=== PATIENT | female | born 1990 | race African-American/Black ===

== ENCOUNTER 2020-11-21 03:00 | Inpatient (IN) | payer OTHER ==
[2020-11-21] MEDS: DEXTROSE 5%-LACTATED RINGERS 1,000 ML IV SCH (03:00)
[2020-11-21] MEDS: OXYTOCIN 20 UNITS in 0.9% NS 20 UNIT/1,000 ML INFUS.BAG IV SCH (03:30)
[2020-11-21] MEDS ORDERED: WITCH HAZEL 50% (TUCKS) 40 PAD/JAR PAD TP PRN (05:26)
[2020-11-21] MEDS ORDERED: BISACODYL 10 MG SUPP.RECT RC PRN (05:26)
[2020-11-21] MEDS ORDERED: BENZOCAINE 28 GM HEMORRHOIDAL OINTMENT TP PRN (05:26)
[2020-11-21] MEDS ORDERED: METHYLERGONOVINE MALEATE 0.2 MG/1 ML AMP IM PRN (05:26)
[2020-11-21] MEDS ORDERED: BENZOCAINE 20% 57 GM BOTTLE TP PRN (05:26)
[2020-11-21] MEDS ORDERED: ACETAMINOPHEN 325 MG TABLET (FP) PO PRN (05:26)
[2020-11-21] MEDS ORDERED: IBUPROFEN 600 MG TABLET (FP) PO PRN (05:26)
[2020-11-21 06:26] LABS: BASO % 0.2 % (0-2.0); HEMATOCRIT 35.1 % (32.4-45.2); HEMOGLOBIN 11.7 GM/dL (10.7-15.3); LYMPH % 7.1 % (8-40); MCH 27.8 pg (25.7-33.7); MCHC 33.2 g/dl (32.0-36.0); MEAN CELL VOLUME 83.6 fl (80-96); MEAN PLT VOLUME 10.3 fl (7.5-11.1); MONO % 6.3 % (3.8-10.2); NEUT % 86.4 % (42.8-82.8); PLATELET COUNT 219 K/MM3 (134-434); RDW 15.2 % (11.6-15.6)
[2020-11-21 06:36] LABS: INR 0.97 (0.83-1.09); PROTHROMBIN TIME (PATIENT) 11.7 SEC (9.7-13.0)
[2020-11-21 06:50] LABS: POTASSIUM 4.5 mmol/L (3.5-5.1)
[2020-11-21 06:51] LABS: CALCIUM 8.8 mg/dL (8.5-10.1)
[2020-11-21 06:52] LABS: BLOOD UREA NITROGEN 5.3 mg/dL (7-18)
[2020-11-21 06:54] LABS: CREATININE 0.8 mg/dL (0.55-1.3)
[2020-11-21] MEDS ORDERED: OXYTOCIN 20 UNITS in 0.9% NS 20 UNIT/1,000 ML INFUS.BAG IV ONE (07:26)
[2020-11-21 07:31] VITALS: BMI 27.9
[2020-11-21] MEDS: PRENATAL VITAMINS W/ FOLIC ACID TABLET (FP) PO SCH (10:23)
[2020-11-21] MEDS: FERROUS SO4 325 MG TABLET (FP) PO SCH ×2 (10:23→19:02)
[2020-11-22 08:38] LABS: BASO % 0.5 % (0-2.0); EOS % 0.9 % (0-4.5); LYMPH % 35.2 % (8-40); MCH 27.9 pg (25.7-33.7); MCHC 33.3 g/dl (32.0-36.0); MEAN CELL VOLUME 83.9 fl (80-96); MEAN PLT VOLUME 10.2 fl (7.5-11.1); MONO % 9.7 % (3.8-10.2); NEUT % 53.7 % (42.8-82.8); PLATELET COUNT 202 K/MM3 (134-434); RBC 3.94 M/mm3 (3.60-5.2); RDW 15.1 % (11.6-15.6); WHITE BLOOD COUNT 8.7 K/mm3 (4.0-10.0)
[2020-11-22] MEDS: FERROUS SO4 325 MG TABLET (FP) PO SCH ×3 (09:00→17:45)
[2020-11-22] MEDS: PRENATAL VITAMINS W/ FOLIC ACID TABLET (FP) PO SCH (10:15)
[2020-11-22] MEDS: OXYTOCIN 20 UNITS in 0.9% NS 20 UNIT/1,000 ML INFUS.BAG IV SCH (17:45)
[2020-11-22] MEDS: DEXTROSE 5%-LACTATED RINGERS 1,000 ML IV SCH (17:46)
[2020-11-22] MEDS ORDERED: SENNOSIDES/DOCUSATE COMBO (SENNA PLUS) TABLET (UD) PO PRN (22:00)
[2020-11-23] MEDS: FERROUS SO4 325 MG TABLET (FP) PO SCH (07:30)
[2020-11-23] MEDS: PRENATAL VITAMINS W/ FOLIC ACID TABLET (FP) PO SCH (09:30)
[2020-11-23 13:33] VITALS: BP 118/75; PULSE 83; TEMP 98.4
== END 2020-11-23 11:10 | disposition home or self-care (01) | DRG 560 ==
LOC: JLDR 03:00 → J3W 07:50
PROVIDERS: ADMIT Obstetrics & Gynecology; ATTEND Obstetrics & Gynecology
PROC: 10E0XZZ Delivery of Products of Conception, External Approach (ICD-10-PCS; principal; 2020-11-21)
DX: O48.0 Post-term pregnancy (principal); Z3A.40 40 weeks gestation of pregnancy; Z37.0 Single live birth
CPT/HCPCS: 36415; 59409; 80048; 85025; 85610; 85730; 86780; 86850; 86900; 86901; C9803; U0003